=== PATIENT | female | born 2000 | race Caucasian/White ===

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

== ENCOUNTER 2021-07-28 13:12 | Emergency (ER) | payer OTHER, MEDICAID ==
[2021-07-28] MEDS ORDERED: Ondansetron ODT 4 MG TAB ONE (13:50)
== END 2021-07-28 14:18 | disposition home or self-care (01) ==
LOC: MADERS 13:12
DX: A08.4 Viral intestinal infection, unspecified (principal)
CPT/HCPCS: 99283; Q0162

== ENCOUNTER 2024-03-02 13:40 | Emergency (ER) | payer MEDICAID, OTHER ==
[2024-03-02] MEDS ORDERED: Ondansetron ODT 4 MG TAB ONE (16:55)
== END 2024-03-02 17:08 | disposition home or self-care (01) ==
LOC: MADERS 13:40
DX: K52.9 Noninfective gastroenteritis and colitis, unspecified (principal)
CPT/HCPCS: 99283; Q0162